=== PATIENT | female | born 1960 | race Caucasian/White ===

== ENCOUNTER → 2018-08-17 | Outpatient (CLI) | payer OTHER ==
--- NOTE | 2018-08-17 20:14 | CONS ---
CONSULTATION REASON FOR CONSULTATION: Sleep apnea. 57-year-old female patient presenting with symptoms of snoring and witnessed apneas as reported by the . She has also had some scratchy throat. When she wakes up in the morning. She claims that she has a type A personality. 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 She herself is anxious and at times she has difficulty in sleep initiation and maintenance. For the most part, she is able to sleep 6 hours and she wakes up refreshed and alert during the day. She is averaging about 3 to 6 hours of sleep per night. PAST MEDICAL HISTORY: 1. Graves disease, status post radioactive iodine treatment. 2. Hypertension. 3. Hypothyroidism. PAST SURGICAL HISTORY: Surgical release of pyloric stenosis in 1959, tubal ligation, ankle surgery, hysterectomy. DRUG ALLERGIES: Not known. OUTPATIENT MEDICATION: Includes Levoxyl, losartan, metoprolol. SOCIAL HISTORY: Nonsmoker, no history of alcohol, no history of IV drugs. 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 FAMILY HISTORY: Negative for sleep apnea. REVIEW OF SYSTEMS: 12-point review of system was done. Positive findings are mentioned as above in history of present illness. PHYSICAL EXAMINATION: BP is 135/71, pulse 82, respirations 16, temp 97.7 weight is 215, height is 5 feet 4 inches, neck size 15-1/4 inch, [place] score is 0, BMI 36.3, saturation 97% on room air. GENERAL APPEARANCE: Calm, comfortable. Head is atraumatic, normocephalic. NECK: Supple. No JVD. No goiter or neck masses. Mallampati class III. LUNGS: Clear to auscultation. HEART: Sounds regular rhythm. Normal S1, S2. No S3. No murmurs. ABDOMEN: Soft, nontender. EXTREMITIES: No edema. No cyanosis or clubbing. IMPRESSION: 1. Snoring with low suspicion for obstructive sleep apnea. 2. Chronic anxiety. 3. Hypertension. 4. Hypothyroidism/Grave's disease. PLAN: 1. Home sleep study to screen the patient for sleep breathing disorder. 2. Encourage weight loss. 3. Implement sleep hygiene measures. 4. Will continue to follow. MMODL / IJN: [id number] /
== END | disposition home or self-care (01) ==
LOC: SLEEP 13:29
PROVIDERS: ATTEND Internal Medicine Critical Care Medicine
DX: R06.83 Snoring (principal); F41.9 Anxiety disorder, unspecified; I10 Essential (primary) hypertension; E03.9 Hypothyroidism, unspecified; Z79.899 Other long term (current) drug therapy
CPT/HCPCS: 99211

== ENCOUNTER 2018-08-22 21:22 | Emergency (ER) | payer OTHER ==
[2018-08-22] MEDS ORDERED: IPRATROPIUM-ALBUTEROL 3 ML NEB INHALATION STA (22:00)
[2018-08-22] MEDS ORDERED: DEXAMETHASONE 4 MG TAB PO STA (22:00)
--- NOTE | 2018-08-22 22:02 | ED ---
General Adult HPI - General Chief complaint: Upper Respiratory Infection Stated complaint: cough, weakness Source: patient Mode of arrival: ambulatory Limitations: no limitations - History of Present Illness Initial comments: Dictation was produced using [employer] dictation software. please excuse any grammatical, word or spelling errors. Chief Complaint: 49-year-old female with past history of asthma presents with 4 days of constitutional symptoms, cough and runny nose. History of Present Illness: Patient is a 49-year-old female who recently moved from [place]. Ever since moving here she's been having problems with ALLERGIES. Last 40 she's been having constitutional symptoms. Denies any overt sick exposures. Patient states she's been feeling as though had a worsening cough that goes from her chest. Patient is a dry cough. Patient's been feeling feverish at home. Patient takes medications for her hypothyroidism. The ROS documented in this emergency department record has been reviewed and confirmed by me. Those systems with pertinent positive or negative responses have been documented in the HPI. All other systems are other negative and/or noncontributory. - Related Data Previous Rx's Medication Instructions Recorded Acetaminophen with Codeine 1 tab PO Q6H PRN 3 Days #8 tab 08/22/18 [Tylenol w/codeine #3] Albuterol Inhaler [Ventolin Hfa 1 - 2 puff INHALATION RT-Q6H #1 08/22/18 Inhaler] inhaler Azithromycin [Zithromax Z-pack] 0 mg PO DIRECTED #6 tab 08/22/18 Allergies Allergy/AdvReac Type Severity Reaction Status Date / Time No Known Allergies Allergy Verified 08/22/18 21:29 Review of Systems ROS Statement: Those systems with pertinent positive or pertinent negative responses have been documented in the HPI. ROS Other: All systems not noted in ROS Statement are negative. Past Medical History Past Medical History: Asthma History of Any Multi-Drug Resistant Organisms: None Reported Past Surgical History: Hysterectomy Additional Past Surgical History / Comment(s): right ankle surgery Past Psychological History: Anxiety Smoking Status: Former smoker Past Alcohol Use History: None Reported Past Drug Use History: None Reported General Exam - General Exam Comments Initial Comments: PHYSICAL EXAM: General Impression: Alert and oriented x3, not in acute distress HEENT: Normocephalic atraumatic, extra-ocular movements intact, pupils equal and reactive to light bilaterally, mucous membranes moist. Cardiovascular: Heart regular rate and rhythm, S1&S2 audible, no murmurs, rubs or gallops Chest: Lungs clear to auscultation bilaterally, no rhonchi, no wheeze, no rales Abdomen: Bowel sounds present, abdomen soft, non-tender, non-distended, no organomegaly Musculoskeletal: Pulses present and equal in all extremities, no peripheral edema Motor: Power 5/5 bilaterally, no focal deficits noted Neurological: CN II-XII grossly intact, no focal motor or sensory deficits noted Skin: Intact with no visualized rashes Psych: Normal affect and mood Limitations: no limitations Course Vital Signs 08/22/18 08/22/18 08/22/18 21:24 21:46 22:14 Temperature 99.1 F Pulse Rate 121 H 110 H Respiratory 22 21 Rate Blood Pressure 129/78 O2 Sat by Pulse 96 Oximetry 08/22/18 08/22/18 22:23 23:02 Temperature 100.8 F H Pulse Rate 110 H 93 Respiratory 18 Rate Blood Pressure 125/94 O2 Sat by Pulse 95 Oximetry Medical Decision Making - Medical Decision Making ED course: 57-year-old female presents with cough and constitutional symptoms. Vital signs upon arrival shows heart rate of 121. Rest vital signs within normal limits. Patient is well-appearing. Physical examination is benign. Repeat labs obtained patient showed low-grade fever. Chest x-ray was obtained showing right lower lobe pneumonia. Patient treated with breathing treatments, steroids and one 500 dose of Zithromax. Patient is hemodynamically stable and feels well. Patient to be discharged with antibiotics, Ventolin inhaler and cough suppressant. No clinical suspicion of healthcare acquired pneumonia. Disposition Clinical Impression: Pneumonia Disposition: HOME SELF-CARE Condition: Good Instructions: Pneumonia (ED) Prescriptions: Acetaminophen with Codeine [Tylenol w/codeine #3] 1 tab PO Q6H PRN 3 Days #8 tab PRN Reason: Cough Albuterol Inhaler [Ventolin Hfa Inhaler] 1 - 2 puff INHALATION RT-Q6H #1 inhaler Azithromycin [Zithromax Z-pack] 0 mg PO DIRECTED #6 tab Is patient prescribed a controlled substance at d/c from ED?: No Referrals: Nabor Marino MD [Primary Care Provider] - 1-2 days Time of Disposition: 23:59
[2018-08-22] MEDS ORDERED: AZITHROMYCIN 500 MG TAB PO STA (23:35)
[2018-08-22] MEDS ORDERED: NAPROXEN 250 MG TAB PO STA (23:47)
--- NOTE | 2018-08-22 23:50 | XR ---
EXAMINATION TYPE: XR chest 2V DATE OF EXAM: 08/22/2018 COMPARISON: 05/24/2018 HISTORY: Fever and weakness cough TECHNIQUE: Frontal and lateral views of the chest are obtained. FINDINGS: There is patchy infiltrate in the right middle lobe. The other lung dukes are clear. Hear t and mediastinum are normal. Bony thorax is intact. IMPRESSION: There is new right middle lobe pneumonia compared to old exam.
[2018-08-23 00:13] VITALS: BP 145/77; PULSE 103; RESP 16; TEMP 99
== END 2018-08-23 00:16 | disposition home or self-care (01) ==
LOC: EC 21:22
DX: J18.1 Lobar pneumonia, unspecified organism (principal); J45.909 Unspecified asthma, uncomplicated; E03.9 Hypothyroidism, unspecified; Z87.891 Personal history of nicotine dependence; Z79.899 Other long term (current) drug therapy
CPT/HCPCS: 94640; 71046; 99283; J8540

== ENCOUNTER → 2018-09-10 | Outpatient (CLI) | payer OTHER ==
--- NOTE | 2018-09-10 16:55 | CT ---
CT CHEST FOR PULMONARY EMBOLISM. EXAMINATION TYPE: CT angio chest DATE OF EXAM: 09/10/2018 INDICATION: cough, SOB, pneumonia CT DLP: 424.0 mGycm, Automated exposure control for dose reduction was used. CONTRAST: Patient injected with 62 mL of Isovue 370. COMPARISON: None TECHNIQUE: CT of the chest is performed on a spiral scan at 2 mm thick sections. Study is performed with intravenous contrast timed for evaluation for pulmonary embolism. This will limit additional po rtions of the evaluation. 3-D MIP images reconstructed by the technologist are reviewed on the compu ter in the coronal and sagittal planes. FINDINGS: No persistent filling defects are evident to suggest an acute pulmonary embolism. No mediastinal or hilar adenopathy enlarged by CT criteria is evident. The ascending aorta diameter at the level of the main pulmonary artery is 3.0 cm. The main pulmonary artery diameter at the bifur cation is 2.5 cm. Streak opacity is within the right middle lobe. There is displacement of the major fissure compatible with atelectasis. Underlying masses are not entirely excluded and follow-up is recommended. Limited CT section through the upper abdomen are unremarkable. IMPRESSIONS: 1. No acute pulmonary embolism.
--- NOTE | 2018-09-30 14:13 | MM ---
Reason for exam: screening (asymptomatic). Last mammogram was performed 1 year and 7 months ago. History: Patient is postmenopausal. Took estrogen for 6 years. MG Screening Mammo w CAD Bilateral CC and MLO view(s) were taken. Prior study comparison: February 02, 2017, mammogram. September 04, 2015, mammogram. There are scattered fibroglandular densities. No suspicious abnormality. No Significant new finding since 02/02/17. ASSESSMENT: Negative, BI-RAD 1 RECOMMENDATION: Routine screening mammogram of both breasts in 1 year.
== END | disposition home or self-care (01) ==
LOC: RADMAMWWP 14:22
PROVIDERS: ATTEND Family Medicine
DX: Z12.31 Encounter for screening mammogram for malignant neoplasm of breast (principal); J44.9 Chronic obstructive pulmonary disease, unspecified
CPT/HCPCS: 77067; 71275; Q9967

== ENCOUNTER → 2019-05-02 | Outpatient (CLI) | payer OTHER ==
[2019-05-02 13:03] LABS: Basophils % (A) 1 %; Eosinophils # (A) 0.2 k/uL (0-0.7); Eosinophils % (A) 4 %; HCT 41.5 % (34.0-46.0); HGB 13.4 gm/dL (11.4-16.0); Lymphocytes # (A) 2.1 k/uL (1.0-4.8); Lymphocytes % (A) 35 %; MCH 28.3 pg (25.0-35.0); MCHC 32.4 g/dL (31.0-37.0); MCV 87.5 fL (80.0-100.0); Mean Platelet Volume 7.1; Monocytes # (A) 0.3 k/uL (0-1.0); Monocytes % (A) 5 %; Neutrophils # (A) 3.1 k/uL (1.3-7.7); Neutrophils % (A) 52 %; Platelet Count 317 k/uL (150-450); RBC 4.74 m/uL (3.80-5.40); RDW 14.1 % (11.5-15.5); WBC 5.8 k/uL (3.8-10.6)
[2019-05-02 14:30] LABS: Erythrocyte Sedimentation Rate 6 mm/hr (0-20)
[2019-05-02 19:51] LABS: Immunoglobulin E 46.4 IU/mL (0.00-114.00)
[2019-05-03 17:44] LABS: Immunoglobulin M 62.7 mg/dL (40.0-280.0)
== END | disposition home or self-care (01) ==
LOC: LABWHC1 12:29
PROVIDERS: ATTEND Allergy & Immunology
DX: K21.9 Gastro-esophageal reflux disease without esophagitis (principal)
CPT/HCPCS: 36415; 82784; 82785; 85025; 85652; 86140

== ENCOUNTER 2020-08-01 07:40 | Day surgery (SDC) | payer OTHER ==
[2020-07-30 16:12] VITALS: BMI 30.7
[~2020-08-01 07:40] MED LIST: ALPRAZolam 0.25 MG TAB PO PRN; ALPRAZolam 0.5 MG TAB PO PRN; ASPIRIN 325 MG TAB PO STA; ATORVASTATIN 80 MG TAB PO STA; NITROGLYCERIN SL TABS 0.4 MG TAB SUBLINGUAL PRN; SODIUM CHLORIDE 0.9% 1,000 ML in EMPTY BAG 1 BAG IV ONE
[2020-08-01] MEDS ORDERED: SODIUM CHLORIDE 0.9% 1,000 ML IV ONE (08:21)
[2020-08-01] MEDS ORDERED: LIDOCAINE 1% INJ 10MG/ML (20 ML MDV) ONE (08:30)
[2020-08-01] MEDS ORDERED: fentaNYL (PF) 50 MCG/ML 2 ML AMP ONE (08:30)
[2020-08-01 08:40] LABS: Basophils % (A) 1 %; Eosinophils # (A) 0.3 k/uL (0-0.7); Eosinophils % (A) 3 %; HCT 42.5 % (34.0-46.0); HGB 13.7 gm/dL (11.4-16.0); Lymphocytes # (A) 2.5 k/uL (1.0-4.8); Lymphocytes % (A) 33 %; MCHC 32.1 g/dL (31.0-37.0); MCV 87.2 fL (80.0-100.0); Mean Platelet Volume 7.3; Monocytes # (A) 0.5 k/uL (0-1.0); Monocytes % (A) 7 %; Neutrophils # (A) 4.1 k/uL (1.3-7.7); Neutrophils % (A) 55 %; Platelet Count 298 k/uL (150-450); RBC 4.88 m/uL (3.80-5.40); RDW 13.5 % (11.5-15.5); WBC 7.5 k/uL (3.8-10.6)
[2020-08-01 08:44] VITALS: RESP 16; TEMP 97.9
[2020-08-01] MEDS ORDERED: LIDOCAINE 1% INJ 10MG/ML (20 ML MDV) SQ ONE (09:12)
[2020-08-01] MEDS ORDERED: fentaNYL (PF) 50 MCG/ML 2 ML AMP IVP ONE ×2 (09:12)
[2020-08-01] MEDS ORDERED: MIDAZOLAM 2 MG/2 ML VIAL IVP ONE (09:12)
[2020-08-01] MEDS ORDERED: IOPAMIDOL-370 125ML BTL INJ ONE (09:25)
--- NOTE | 2020-08-01 14:14 | LTR ---
DATE OF SERVICE: 08/01/2020 RE: SripriscillaMagnolia Dear Genaro; I performed cardiac catheterization on Magnolia Andres, a detailed catheterization note is enclosed for your records. In brief, cardiac catheterization shows normal coronary arteries and her stress test is a false positive stress. Thank you for giving me the opportunity to participate in working with this pleasant lady. Sincerely, MD MANDY De La Torre / DIONNE: [id number] /
--- NOTE | 2020-08-01 14:14 | CC ---
CARDIAC CATHETERIZATION REPORT INDICATION: Shortness of breath with abnormal stress test showing ischemia involving inferior wall. PROCEDURE NOTE: After obtaining informed consent, left heart catheterization and coronary angiogram were performed via the right femoral artery using standard Kristin catheters. Patient tolerated the procedure well without any obvious complications. A femoral angiogram was performed and Angio-Seal was deployed for hemostasis. Patient received moderate conscious sedation. Total sedation time was 18 minutes. FINDINGS: 1. HEMODYNAMICS: Left ventricular end-diastolic pressure is 4 mm. There is no significant gradient across the aortic valve. 2. LEFT VENTRICULOGRAM: Left ventriculogram was not performed #3. 3. ANGIOGRAPHIC DATA: LEFT MAIN CORONARY ARTERY: Left main coronary artery is a small vessel and is free of stenosis. Divides into left anterior descending coronary artery and circumflex coronary artery. LAD and its branches, circumflex coronary artery and its branches are free of significant stenosis. Right coronary artery is a large dominant vessel and is free of significant disease. CONCLUSION: 1. Normal coronary arteries. 2. Right-dominant circulation. 3. False-positive stress test. PLAN: I reviewed angiographic data with the patient and told her that her stress test is a falsely positive. Shortness of breath is noncardiac in origin and her management is going to be in the form of risk factor modification, medical therapy. MMODL / IJN: [id number] /
[2020-08-01 16:59] VITALS: BP 132/60; PULSE 68
== END 2020-08-01 15:19 | disposition home or self-care (01) ==
LOC: CATHCVL 07:40
PROVIDERS: ATTEND Internal Medicine Cardiovascular Disease
DX: R06.02 Shortness of breath (principal); R00.0 Tachycardia, unspecified; R93.1 Abnormal findings on diagnostic imaging of heart and coronary circulation; I10 Essential (primary) hypertension; J45.909 Unspecified asthma, uncomplicated; E07.9 Disorder of thyroid, unspecified; Z79.1 Long term (current) use of non-steroidal anti-inflammatories (NSAID); Z79.51 Long term (current) use of inhaled steroids; Z79.890 Hormone replacement therapy; Z79.899 Other long term (current) drug therapy; Z87.891 Personal history of nicotine dependence
CPT/HCPCS: 93458; 85025; C1769 ×2; C1760; C1894; J2250; J2001; J3010; Q9967

== ENCOUNTER 2021-05-24 09:53 | Emergency (ER) | payer OTHER ==
[2021-05-24 10:03] VITALS: BP 141/90; PULSE 76; RESP 18; TEMP 98
[2021-05-24] MEDS ORDERED: KETOROLAC 15 MG/ML 1 ML VIAL IM STA (10:39)
--- NOTE | 2021-05-24 11:20 | ED ---
General Adult HPI - General Chief complaint: Abdominal Pain Stated complaint: groin pain Time Seen by Provider: 05/24/21 10:14 Source: patient Mode of arrival: ambulatory Limitations: no limitations - History of Present Illness Initial comments: Patient is a 60-year-old female with history of asthma, thyroid disorder, presenting to the emergency Department with complaints of increasing right groin pain over the past week. She states the pain started about 5 days ago. She describes the pain is in her right groin. She gets up in the morning, the pain is minimal and then gradually gets worse throughout the day. She denies any radiation, but yesterday and today the pain has progressed to a 10/10. She's been taking naproxen for this which does help but only lasts for a couple hours. She denies any surgeries of her right hip, no falls or trauma. She describes the pain is similar to after her heart cath she had in July. She states she had a hard time recovering from this with pain at the exact same site. She is not on blood thinners. She denies any fevers or chills. She has no further complaints. Upon arrival to the ER, her vitals are stable. - Related Data Home Medications Medication Instructions Recorded Confirmed ALPRAZolam [Xanax] 0.25 mg PO BID PRN 07/30/20 05/24/21 Beclomethasone Dip 80 Mcg/Puff 2 puff INHALATION BID 07/30/20 05/24/21 [Qvar 80 mcg] Fluticasone Propionate [Flonase 1 spray EA NOSTRIL DAILY 07/30/20 05/24/21 Allergy Relief] Levothyroxine Sodium [Levoxyl] 137 mcg PO DAILY 07/30/20 05/24/21 Losartan Potassium 100 mg PO DAILY 07/30/20 05/24/21 Metoprolol Succinate (ER) [Toprol 25 mg PO DAILY 07/30/20 05/24/21 Xl] Montelukast [Singulair] 10 mg PO DAILY 07/30/20 05/24/21 Naproxen 500 mg PO DAILY PRN 07/30/20 05/24/21 Allergies Allergy/AdvReac Type Severity Reaction Status Date / Time stimulants AdvReac "heart Uncoded 05/24/21 09:59 races and has panic attack" Review of Systems ROS Statement: Those systems with pertinent positive or pertinent negative responses have been documented in the HPI. ROS Other: All systems not noted in ROS Statement are negative. Past Medical History Past Medical History: Asthma, Pneumonia, Thyroid Disorder Additional Past Medical History / Comment(s): graves dx, states allergy induced asthma, History of Any Multi-Drug Resistant Organisms: None Reported Past Surgical History: Appendectomy, Heart Catheterization, Hysterectomy, Orthopedic Surgery, Tonsillectomy, Tubal Ligation Additional Past Surgical History / Comment(s): right ankle surgery, screws in rt ankle, sx for pyloric stenosis at age 3 weeks Past Anesthesia/Blood Transfusion Reactions: No Reported Reaction Past Psychological History: Anxiety Smoking Status: Former smoker Past Alcohol Use History: None Reported Past Drug Use History: None Reported General Exam - General Exam Comments Initial Comments: GENERAL: Patient is well-developed and well-nourished. Patient is nontoxic and in mild distress. HEAD: Atraumatic, normocephalic. EYES: Pupils equal round and reactive to light, extraocular movements intact, sclera anicteric, conjunctiva are normal. Eyelids were unremarkable. ENT: Nares patent, oropharynx clear without exudates. Moist mucous membranes. NECK: Normal range of motion, supple without lymphadenopathy or JVD. LUNGS: Unlabored respirations. Breath sounds clear to auscultation bilaterally and e qual. No wheezes rales or rhonchi. HEART: Regular rate and rhythm without murmurs, rubs or gallops. ABDOMEN: Soft, nontender, normoactive bowel sounds. No guarding, no rebound. No masses appreciated. : Deferred MUSCULOSKELETAL: Pain with palpation of the right groin, there is no lumps to this area, she is neurovascular intact left and right lower extremities. She has increasing right hip pain with active range of motion. No clubbing or cyanosis. NEUROLOGICAL: Patient is alert and oriented x 3. Normal speech, normal gait. SKIN: Warm, Dry, normal turgor, no rashes or lesions noted. Limitations: no limitations Course Vital Signs 05/24/21 09:59 Temperature 98 F Pulse Rate 76 Respiratory 18 Rate Blood Pressure 141/90 O2 Sat by Pulse 96 Oximetry Medical Decision Making - Medical Decision Making Patient is a 60-year-old female with history of thyroid disorder, presenting with pain in the right groin for increasing over the past 5 days. She describes the pain is similar to after her heart cath in July. Injuries or trauma to the right hip, no previous surgeries. Ultrasound of the right lower extremity reveals no evidence of DVT, right hip x-ray is also within normal limits. I discussed these findings with the patient. We discussed that this is most likely muscle related. She states they are getting ready to move to [place] and has been going up and down the stairs more over the past week. She's also been driving a lot. She also has a history of right-sided sciatica and her gait may be altered as well. I recommended continuing with the naproxen, heat packs to the area. She can follow-up with her primary care physician. She is in agreement this plan of care and is stable for discharge. Case discussed with Dr. Desouza. Disposition Clinical Impression: Right hip pain Disposition: HOME SELF-CARE Condition: Stable Instructions (If sedation given, give patient instructions): Hip Pain (ED) Additional Instructions: Please return to the Emergency Department if symptoms worsen or any other concerns. Ultrasound is negative for DVT, x-ray is negative for fractures or dislocations. Recommend continuing with naproxen for discomfort, heat to the area. Please follow-up with your primary care physician. Is patient prescribed a controlled substance at d/c from ED?: No Referrals: Nonstaff,Physician [Primary Care Provider] - 1-2 days Time of Disposition: 12:20
--- NOTE | 2021-05-24 11:32 | US ---
EXAMINATION TYPE: US venous doppler duplex LE RT DATE OF EXAM: 05/24/2021 11:24 AM COMPARISON: NONE CLINICAL HISTORY: Right groin pain x 1wk. SIDE PERFORMED: Right TECHNIQUE: The lower extremity deep venous system is examined utilizing real time linear array sonog martin with graded compression, doppler sonography and color-flow sonography. VESSELS IMAGED: Common Femoral Vein Deep Femoral Vein Greater Saphenous Vein * Femoral Vein Popliteal Vein Small Saphenous Vein * Proximal Calf Veins (* superficial vessels) Right Leg: Appears negative for DVT IMPRESSION: 1. No evidence of deep venous thrombosis in the right lower extremity veins.
--- NOTE | 2021-05-24 12:00 | XR ---
EXAMINATION TYPE: XR Hip Complete RT DATE OF EXAM: 05/24/2021 Comparison: None Clinical History: 60-year-old female right hip Findings: Mild marginal spurring at the right hip. Right SI joint appears intact. No acute fracture, subluxatio n, or dislocation. Impression: Mild degenerative change of the right hip. No acute osseous abnormality seen.
== END 2021-05-24 13:09 | disposition home or self-care (01) ==
LOC: EC 09:53
DX: M25.551 Pain in right hip (principal); R10.31 Right lower quadrant pain; J45.909 Unspecified asthma, uncomplicated; F41.9 Anxiety disorder, unspecified; Z87.891 Personal history of nicotine dependence; Z79.51 Long term (current) use of inhaled steroids
CPT/HCPCS: 73502; 93971; 99284; 96372; J1885